=== PATIENT | female | born 1950 | race Two or more races ===

== ENCOUNTER 2020-07-22 14:46 | Emergency (ER) | payer BC, MEDICARE ==
[~2020-07-22] VITALS: Ht 165.1 cm; Wt 60.0 kg
[~2020-07-22 14:46] MED LIST: FAMO-135
[2020-07-22] MEDS ORDERED: LIDOCAINE HCL/PF 1% 10 MG/ML 5ML VIAL IJ ONE (15:30)
[2020-07-22] MEDS ORDERED: ACETAMINOPHEN 325MG TABLET PO ONE (15:30)
[2020-07-22] MEDS ORDERED: BACITRACIN ZINC OINT UDPKT TOP ONE (15:30)
[2020-07-22] MEDS ORDERED: IBUP-2028 MT (16:35)
[2020-07-22 16:53] VITALS: BP 191/102
== END 2020-07-22 17:01 | disposition home or self-care (01) ==
LOC: ER 14:46
DX: S61.012A Laceration without foreign body of left thumb without damage to nail, initial encounter (principal); W26.0XXA Contact with knife, initial encounter; Y93.89 Activity, other specified; Y92.89 Other specified places as the place of occurrence of the external cause; Y99.8 Other external cause status
CPT/HCPCS: 12001; 99282; A4217; J3490; Z7610